=== PATIENT | female | born 1965 | race Native Hawaiian/Other Pacific Islander ===

== ENCOUNTER 2017-02-06 07:35 | Outpatient (CLI) | payer BC | END 2017-02-06 19:45 | disposition home or self-care (01) | LOC: NM 07:35 | DX: R53.83 Other fatigue (principal); I10 Essential (primary) hypertension; R06.02 Shortness of breath | CPT/HCPCS: A9500 ==

== ENCOUNTER 2021-10-16 10:25 | Outpatient (CLI) | payer BC | END 2021-10-16 18:51 | disposition home or self-care (01) | LOC: MAMMO 10:25 | PROVIDERS: ATTEND Internal Medicine | DX: Z12.31 Encounter for screening mammogram for malignant neoplasm of breast (principal) ==